=== PATIENT | male | born 1955 | race Caucasian/White ===

== ENCOUNTER 2018-12-22 07:17 | Day surgery (SDC) | payer BC ==
[2018-12-22] MEDS ORDERED: SOD CHLORIDE 0.45% 1,000 ML IV (08:00)
[2018-12-22 08:03] LABS: ADD MAN DIFF? NO
[2018-12-22 08:08] LABS: BASOPHILS % 0.4 % (0.0-2.0); EOSINOPHILS # 0.2 10^3/ul (0.0-0.5); EOSINOPHILS % 2.5 % (0.0-7.0); HEMATOCRIT 39.1 % (42.0-52.0); HEMOGLOBIN 12.4 g/dl (14.0-18.0); LYMPHOCYTES # 1.9 10^3/ul (0.8-2.9); LYMPHOCYTES % 26.1 % (15.0-51.0); MEAN CORPUSCULAR HEMOGLOBIN 26.8 pg (29.0-33.0); MEAN CORPUSCULAR HGB CONC 31.7 g/dl (32.0-37.0); MEAN CORPUSCULAR VOLUME 84.6 fl (82.0-101.0); MEAN PLATELET VOLUME 9.8 fl (7.4-10.4); MONOCYTE # 0.6 10^3/ul (0.3-0.9); MONOCYTES % 7.8 % (0.0-11.0); NEUTROPHIL # 4.5 10^3/ul (1.6-7.5); NEUTROPHILS % 62.9 % (39.0-77.0); PLATELET COUNT 210 10^3/UL (140-415); RED BLOOD COUNT 4.62 10^6/ul (4.70-6.10); RED CELL DISTRIBUTION WIDTH 13.9 % (11.5-14.5)
[2018-12-22 08:08] LABS: WHITE BLOOD COUNT 7.2 10^3/ul (4.8-10.8)
[2018-12-22 08:25] LABS: ANION GAP 15 (5-13); CALCIUM 9.2 mg/dl (8.4-10.2); CARBON DIOXIDE 21 mmol/L (21-31); CHLORIDE 107 mmol/L (97-110); CREATININE 1.24 mg/dl (0.61-1.24); Estimated GFR 59 mL/min (>60); GLUCOSE 81 mg/dl (70-220); POTASSIUM 4.8 mmol/L (3.5-5.1); SODIUM 143 mmol/L (135-144)
[2018-12-22] MEDS: DIPHENHYDRAMINE 50 MG CAP PO (08:25)
[2018-12-22] MEDS: DIAZEPAM 5 MG TAB PO (08:25)
[2018-12-22] MEDS: FAMOTIDINE 20 MG TAB PO (08:25)
[2018-12-22 08:26] LABS: CHOL/HDL RATIO 5.1 RATIO; HDL CHOLESTEROL 31 mg/dl (30-78); LDL CHOLESTEROL,CALCULATED 80 mg/dl; TRIGLYCERIDES 241 mg/dl (0-149)
[2018-12-22 08:26] LABS: CHOLESTEROL 159 mg/dl (100-200)
[2018-12-22 08:27] LABS: BLOOD UREA NITROGEN 28 mg/dl (7-20)
[2018-12-22 08:36] LABS: INR 1.04; PARTIAL THROMBOPLASTIN TIME 29.3 Sec (23.0-35.0); PROTIME 13.7 Sec (11.9-14.9); PT RATIO 1.1
[2018-12-22] MEDS ORDERED: APIXABAN 5 MG TABLET PO (08:36)
[2018-12-22] MEDS ORDERED: MIDAZOLAM 1 MG/ML 2 ML INJ (08:56)
[2018-12-22] MEDS ORDERED: IODIXANOL LOCM 100 ML BTL (08:56)
[2018-12-22] MEDS ORDERED: HEPARIN 1000 UNITS/ML 10 ML INJ (08:56)
[2018-12-22] MEDS ORDERED: FENTAnyl 50 MCG/ML VIAL (08:56)
[2018-12-22] MEDS ORDERED: NITROGLYCERIN (IC) 100 MCG/ML INJ (08:57)
[2018-12-22] MEDS ORDERED: VERAPAMIL 5 MG INJ (08:57)
[2018-12-22] MEDS ORDERED: SOD CHLORIDE 0.9% 1,000 ML IV (10:39)
[2018-12-22] MEDS ORDERED: ACETAMINOPHEN 325 MG TAB PO (11:00)
[2018-12-22] MEDS ORDERED: AL HYDROX/MG HYDROX/SIMETH 30 ML CUP PO (11:00)
[2018-12-22] MEDS ORDERED: ONDANSETRON 4 MG INJ IV (11:00)
[2018-12-22] MEDS ORDERED: morphine 2 MG INJ IV (11:00)
== END 2018-12-22 13:08 | disposition home or self-care (01) ==
LOC: SDS 07:17
DX: I25.10 Atherosclerotic heart disease of native coronary artery without angina pectoris (principal); I10 Essential (primary) hypertension; E78.5 Hyperlipidemia, unspecified; E11.9 Type 2 diabetes mellitus without complications; Z86.73 Personal history of transient ischemic attack (TIA), and cerebral infarction without residual deficits
CPT/HCPCS: 71045; 80048; 80061; 82962; 85025; 85610; 85730; 93005; 93458